=== PATIENT | male | born 1975 | race Caucasian/White ===

== ENCOUNTER 2018-03-19 18:31 | Emergency (ER) | payer MEDICAID ==
--- NOTE | 2018-03-19 19:28 | ED Physician Chart ---
ED Chief Complaint/HPI - Patient Information Date Seen:: 03/19/18 Time Seen:: 19:28 Chief Complaint:: Alcohol intoxication History of Present Illness:: 42 yo male was brought by ambulance from street to ER due to alcohol intoxication. Patient was awake and stated that he had abdominal pain. Patient was hardly able to stand by himself due to intoxication. Allergies:: Allergies Allergy/AdvReac Type Severity Reaction Status Date / Time amoxicillin Allergy Verified 03/19/18 18:53 Penicillins [PCN] Allergy Verified 03/19/18 18:53 Vitals:: Vital Signs - 8 hr 03/19/18 18:37 Temp 97.2 F HR 102 RR 18 BP 107/62 O2 Sat % 94 ED Review of Systems - Review of Systems General/Constitutional: No fever Skin: No bruising Head: Headache Eyes: No pain ENT: No nasal drainage Neck: No neck pain Cardio Vascular: No chest pain Pulmonary: No SOB GI: Nausea, Vomiting Musculoskeletal: No bone or joint pain Neurological: Weakness ED Past Medical History - Past Medical History Past Medical History: No significant medical hx Social History: Non Smoker, Alcohol, No Drug Use Family Medical History - Family Member Mother History Unknown: Yes ED Physical Exam - Physical Examination General/Constitutional: Awake Other Gen/Cons comments:: Confused Head: Atraumatic Eyes: PERRL Skin: No ecchymosis ENMT: Nasal exam nl Neck: No nuchal rigidity Respiratory: No Wheeze/Rhonchi/Rales Cardio Vascular: RRR, No murmur, gallop, rubs, NL S1 S2 GI: Nondistended Extremities: Full ROM, No edema Neuro/Psych: No focal deficits ED Labs/Radiology/EKG Results - Lab Results Results: Laboratory Last Values WBC 4.0 Th/cmm (4.8-10.8) L 03/19/18 20:04 RBC 3.73 Mil/cmm (4.30-5.70) L 03/19/18 20:04 Hgb 12.1 gm/dL (12-16) 03/19/18 20:04 Hct 35.5 % (41.0-60) L 03/19/18 20:04 MCV 95.0 fl (80-99) 03/19/18 20:04 MCH 32.4 pg (26.0-30.0) H 03/19/18 20:04 MCHC Differential 34.1 pg (28.0-36.0) 03/19/18 20:04 RDW 15.2 % (11.5-20.0) 03/19/18 20:04 Plt Count 131 Th/cmm (150-400) L 03/19/18 20:04 MPV 7.3 fl 03/19/18 20:04 Neutrophils % 53.7 % (40.0-80.0) 03/19/18 20:04 Lymphocytes % 29.7 % (20.0-50.0) 03/19/18 20:04 Monocytes % 13.3 % (2.0-10.0) H 03/19/18 20:04 Eosinophils % 2.8 % (0.0-5.0) 03/19/18 20:04 Basophils % 0.5 % (0.0-2.0) 03/19/18 20:04 Sodium 139 mEq/L (136-145) 03/19/18 20:04 Potassium 4.1 mEq/L (3.5-5.1) 03/19/18 20:04 Chloride 104 mEq/L (98-107) 03/19/18 20:04 Carbon Dioxide 23.5 mEq/L (21.0-31.0) 03/19/18 20:04 Anion Gap 15.6 (7.0-16.0) 03/19/18 20:04 BUN 15 mg/dL (7-25) 03/19/18 20:04 Creatinine 0.8 mg/dL (0.7-1.3) 03/19/18 20:04 Est GFR ( Amer) > 60.0 ml/min (>90) 03/19/18 20:04 Est GFR (Non-Af Amer) > 60.0 ml/min 03/19/18 20:04 BUN/Creatinine Ratio 18.8 03/19/18 20:04 Glucose 120 mg/dL (70-105) H 03/19/18 20:04 Whole Bld Lactic Acid 1.82 mmol/L (0.60-1.99) 03/19/18 Unknown Calcium 9.7 mg/dL (8.6-10.3) 03/19/18 20:04 Total Bilirubin 0.2 mg/dL (0.3-1.0) L 03/19/18 20:04 AST 45 U/L (13-39) H 03/19/18 20:04 ALT 27 U/L (7-52) 03/19/18 20:04 Alkaline Phosphatase 61 U/L (34-104) 03/19/18 20:04 Total Protein 8.0 gm/dL (6.0-8.3) 03/19/18 20:04 Albumin 4.6 gm/dL (4.2-5.5) 03/19/18 20:04 Globulin 3.4 gm/dL 03/19/18 20:04 Albumin/Globulin Ratio 1.4 (1.0-1.8) 03/19/18 20:04 Lipase 54 U/L (11-82) 03/19/18 20:04 Ethyl Alcohol 311 mg/dL (0-10) H 03/19/18 20:04 ED Assessment - Assessment General Assessment: Alcohol intoxication Assessment/Comments:: CBC, CMP, UA, urine drug screen NS 1L IV bolus ED Septic Shock - . Is Septic Shock (SBP<90, OR Lactate>4 mmol\L) present?: No - <6hrs of presentation: Vital Signs: Vital Signs - 8 hr 03/19/18 18:37 Temp 97.2 F HR 102 RR 18 BP 107/62 O2 Sat % 94 ED Reassessment (Disposition) - Reassessment Reassessment:: After slept overnight in the ER, patient recovered from alcohol intoxication. Patient was oriented x 3 and ready to be discharged. Reassessment Condition:: Improved - Patient Disposition Discharge/Transfer:: Home ED Discharge Plan - Patient Disposition Admit/Discharge/Transfer: PT DISCHARGED HOME Instructions: Alcohol Intoxication, [id number]
[2018-03-19 20:10] LABS: % BASOPHILS 0.5 % (0.0-2.0); % EOSINOPHILS 2.8 % (0.0-5.0); % LYMPHOCYTES 29.7 % (20.0-50.0); % MONOCYTES 13.3 % (2.0-10.0); % NEUTROPHILS 53.7 % (40.0-80.0); EOSINOPHILE ABSOLUTE 0.1 Th/cmm (0.1-0.4); HEMATOCRIT 35.5 % (41.0-60); HEMOGLOBIN 12.1 gm/dL (12-16); LYMPHOCYTE ABSOLUTE 1.2 Th/cmm (1.5-3.0); MEAN CORPUSCULAR HEMOGLOBIN 32.4 pg (26.0-30.0); MEAN CORPUSCULAR HGB CONC 34.1 pg (28.0-36.0); MEAN PLATELET VOLUME 7.3 fl; MONOCYTE ABSOLUTE 0.5 Th/cmm (0.3-1.0); NEUTROPHILE ABSOLUTE 2.2 Th/cmm (1.8-8.0); PLATELET COUNT 131 Th/cmm (150-400); RED BLOOD COUNT 3.73 Mil/cmm (4.30-5.70); RED CELL DISTRIBUTION WIDTH 15.2 % (11.5-20.0)
[2018-03-19 20:27] LABS: ALB/GLOB RATIO 1.4 (1.0-1.8); ALBUMIN 4.6 gm/dL (4.2-5.5); ALKALINE PHOSPHATASE 61 U/L (34-104); ANION GAP 15.6 (7.0-16.0); BILIRUBIN,TOTAL 0.2 mg/dL (0.3-1.0); BUN - UREA NITROGEN 15 mg/dL (7-25); CALCIUM SERUM 9.7 mg/dL (8.6-10.3); CARBON DIOXIDE 23.5 mEq/L (21.0-31.0); CHLORIDE 104 mEq/L (98-107); CREATININE - SERUM 0.8 mg/dL (0.7-1.3); GFR AFRICAN-AMERICAN > 60.0 ml/min (>90); GFR NON AFRICAN-AMERICAN > 60.0 ml/min; GLUCOSE 120 mg/dL (70-105); POTASSIUM SERUM 4.1 mEq/L (3.5-5.1); SGOT 45 U/L (13-39); SGPT/ALT 27 U/L (7-52); SODIUM SERUM 139 mEq/L (136-145)
[2018-03-19] MEDS ORDERED: Sodium Chloride 0.9% 1,000 ML IV ONE (21:35)
== END 2018-03-20 06:15 | disposition home or self-care (01) ==
LOC: ER 18:31
DX: F10.129 Alcohol abuse with intoxication, unspecified (principal); Z88.0 Allergy status to penicillin; Z88.1 Allergy status to other antibiotic agents
CPT/HCPCS: 36415-UA; 80053-TC; 80320-TC; 83605; 83690-TC; 85025-TC; J7030; Z7502

== ENCOUNTER 2018-03-20 11:17 | Emergency (ER) | payer MEDICAID ==
[2018-03-20] MEDS ORDERED: Sodium Chloride 0.9% 1,000 ML IV ONE (11:36)
--- NOTE | 2018-03-20 12:05 | ED Physician Chart ---
ED Chief Complaint/HPI - Patient Information Date Seen:: 03/20/18 Time Seen:: 11:40 Chief Complaint:: AMS History of Present Illness:: onset x 3 hours of ALOC and AMS; pt reported was found with ETOH intoxication and brought by EMS for evaluation; no report of trauma, H/As, neck pain, C/P, SOB, Abd. Pain, A/N/V/D/C, bleeding, fever, chills, or urinary s/s Allergies:: Allergies Allergy/AdvReac Type Severity Reaction Status Date / Time amoxicillin Allergy Verified 03/19/18 18:53 Penicillins [PCN] Allergy Verified 03/19/18 18:53 Vitals:: Vital Signs - 8 hr 03/20/18 11:41 Temp 97.9 F HR 100 RR 15 BP 119/81 O2 Sat % 95 Historian:: Patient, EMS Review:: Nurse's Note Reviewed, Old Chart Reviewed, EMS run form Reviewed ED Review of Systems - Review of Systems General/Constitutional: No fever, No chills, No weight loss, No weakness, No diaphoresis, No edema, No loss of appetite Skin: No skin lesions, No rash, No bruising Head: No headache, No light-headedness Eyes: No loss of vision, No pain, No diplopia ENT: No earache, No nasal drainage, No sore throat, No tinnitus Neck: No neck pain, No swelling, No thyromegaly, No stiffness, No mass noted Cardio Vascular: No chest pain, No palpitations, No PND, No orthopnea, No edema Pulmonary: No SOB, No cough, No sputum, No wheezing GI: No nausea, No vomiting, No diarrhea, No pain, No melena, No hematochezia, No constipation, No hematemesis G/U: No dysuria, No frequency, No hematuria, No nacturia Musculoskeletal: No bone or joint pain, No back pain, No muscle pain Endocrine: No polyuria, No polydipsia Psychiatric: No prior psych history, No depression, No anxiety, No suicidal ideation, No homicidal ideation, No auditory hallucination, No visual hallucination Hematopoietic: No bruising, No lymphadenopathy Allergic/Immuno: No urticaria, No angioedema Neurological: No syncope, No focal symptoms, No weakness, No paresthesia, No headache, No seizure, No dizziness, No confusion, No vertigo ED Past Medical History - Past Medical History Obtainable: Yes Past Medical History: No significant medical hx Family History: HTN Social History: Smoker, Alcohol, No Drug Use, Single Surgical History: None Psychiatricy History: None Medication: Reviewed Family Medical History - Family Member Mother History Unknown: Yes ED Physical Exam - Physical Examination General/Constitutional: Awake, Well-developed, well-nourished, Alert, No distress, GCS 15, Non-toxic appearing, Ambulatory Head: Atraumatic Eyes: Lids, conjuctiva normal, PERRL, EOMI Skin: Nl inspection, No rash, No skin lesions, No ecchymosis, Well hydrated, No lymphadenopathy ENMT: External ears, nose nl, TM canals nl, Nasal exam nl, Lips, teeth, gums nl , Oropharynx nl, Tonsils nl Neck: Nontender, Full ROM w/o pain, No JVD, No nuchal rigidity, No bruit, No mass, No stridor Other Neck comments:: supple; no meningeal signs; no cervical tenderness; no bruits Respiratory: Nl effort/Exclusion, Clear to Auscultation, No Wheeze/Rhonchi/Rales Cardio Vascular: RRR, No murmur, gallop, rubs, NL S1 S2, Carotid/Femoral/Distal pulses equal bilaterally GI: No tenderness/rebounding/guarding, No organomegaly, No hernia, Normal BS's, Nondistended, No mass/bruits, No McBurney tenderness, Rectum exam nl Other GI comments:: no pulsatile masses; good BS; stool is negative for OB : No CVA tenderness Extremities: No tenderness or effusion, Full ROM, normal strength in all extremities, No edema, Normal digits & nails Neuro/Psych: Alert/oriented, DTR's symmetric, Normal sensory exam, Normal motor strength, Judgement/insight normal, Mood normal, Normal gait, No focal deficits Other Neuro/Psych comments:: no focal signs Misc: Normal back, No paraspinal tenderness ED Labs/Radiology/EKG Results - Lab Results Comments:: ETOH: 401; LA: Elevated; WBC: 3.6; D-Dimer: 615; UDS: + Benzodiazepines - Radiology Results Comments:: CXR: NAD - EKG Interpretations EKG Time:: 11:43 Rate & Rhythm: 101; ST Comments:: non-specific st-t changes ED Septic Shock - . Is Septic Shock (SBP<90, OR Lactate>4 mmol\L) present?: No - <6hrs of presentation: Vital Signs: Vital Signs - 8 hr 03/20/18 11:41 Temp 97.9 F HR 100 RR 15 BP 119/81 O2 Sat % 95 ED Reassessment (Disposition) - Reassessment Reassessment Condition:: Improved - Diagnosis Diagnosis:: Dx: Alcohol Intoxication; Leukopenia; Sepsis; Pulmonary Embolus; DVT; Substance Abuse - Aftercare/Follow up Instructions Aftercare/Follow-Up Instructions:: Counseled pt regarding lab results/diagnosis & need follow up, Counseled pt & family regarding lab results/diagnosis & need follow up - Patient Disposition Discharge/Transfer:: Acute Care w/in this hosp Accepting Physician:: Dr. Yen Time Called:: 1300 Time Responded:: 13:00 Admitted to:: ICU Spoke to:: Dr. Yen Admitting Medical Physician:: Dr. Yen Condition at Disposition:: Stable, Improved ED Discharge Plan - Patient Disposition Admit/Discharge/Transfer: PATIENT ELOPED Condition at Disposition: Guarded
[2018-03-20 12:07] LABS: % BASOPHILS 1.4 % (0.0-2.0); % LYMPHOCYTES 33.3 % (20.0-50.0); % MONOCYTES 13.7 % (2.0-10.0); % NEUTROPHILS 48.6 % (40.0-80.0); BASOPHILE ABSOLUTE 0.1 Th/cumm (0-0.2); EOSINOPHILE ABSOLUTE 0.1 Th/cmm (0.1-0.4); HEMATOCRIT 35.3 % (41.0-60); LYMPHOCYTE ABSOLUTE 1.2 Th/cmm (1.5-3.0); MEAN CELL VOLUME 96.1 fl (80-99); MEAN CORPUSCULAR HEMOGLOBIN 32.7 pg (26.0-30.0); MEAN PLATELET VOLUME 7.7 fl; MONOCYTE ABSOLUTE 0.5 Th/cmm (0.3-1.0); NEUTROPHILE ABSOLUTE 1.7 Th/cmm (1.8-8.0); PLATELET COUNT 134 Th/cmm (150-400); RED BLOOD COUNT 3.68 Mil/cmm (4.30-5.70); RED CELL DISTRIBUTION WIDTH 15.1 % (11.5-20.0)
[2018-03-20 12:15] LABS: WHITE BLOOD COUNT 3.6 Th/cmm (4.8-10.8)
[2018-03-20 12:27] LABS: ALB/GLOB RATIO 1.3 (1.0-1.8); ALBUMIN 4.3 gm/dL (4.2-5.5); ALKALINE PHOSPHATASE 59 U/L (34-104); AMYLASE SERUM 32 U/L (29-103); ANION GAP 14.3 (7.0-16.0); BILIRUBIN,TOTAL 0.3 mg/dL (0.3-1.0); BUN - UREA NITROGEN 12 mg/dL (7-25); CALCIUM SERUM 9.1 mg/dL (8.6-10.3); CARBON DIOXIDE 23.5 mEq/L (21.0-31.0); CHLORIDE 105 mEq/L (98-107); CHOLESTEROL 236 mg/dL (<200); CREATININE - SERUM 0.7 mg/dL (0.7-1.3); CREATININE KINASE 116 U/L (30-223); GFR AFRICAN-AMERICAN > 60.0 ml/min (>90); GFR NON AFRICAN-AMERICAN > 60.0 ml/min; GLUCOSE 105 mg/dL (70-105); HDL -HIGH DENSITY LIPOPROTEIN 84 mg/dL (23-92); LIPASE 55 U/L (11-82); POTASSIUM SERUM 3.8 mEq/L (3.5-5.1); SGOT 57 U/L (13-39); SGPT/ALT 31 U/L (7-52); SODIUM SERUM 139 mEq/L (136-145); TOTAL PROTEIN,SERUM 7.7 gm/dL (6.0-8.3); TRIGLYCERIDES 124 mg/dL (<150)
[2018-03-20 12:30] LABS: INR 0.9 (0.5-1.4); PROTHROMBIN TIME (TEST) 9.3 SECONDS (9.5-11.5)
[2018-03-20 12:38] LABS: AMPHETAMINE URINE NEGATIVE (NEGATIVE); BARBITURATES URINE NEGATIVE (NEGATIVE); BENZODIAZEPINES QUAL URINE POSITIVE (NEGATIVE); CANNABINOID THC NEGATIVE (NEGATIVE); COCAINE METABOLITE QUAL URINE NEGATIVE (NEGATIVE); METHADONE URINE NEGATIVE (NEGATIVE); METHAMPHETAMINES QUAL URINE NEGATIVE (NEGATIVE); OPIATES (MORPHINE) QUAL. URINE NEGATIVE (NEGATIVE); PHENCYCLIDINE (PCP) URINE NEGATIVE (NEGATIVE); TRICYCLICS (TCA) QUAL. URINE NEGATIVE (NEGATIVE)
--- NOTE | 2018-03-20 13:40 | Diagnostic Imaging Report ---
CHEST X-RAY: AP view INDICATION: pain COMPARISON: None FINDINGS: Slight increase left basal density is noted. No focal consolidation identified. Cardiomegaly is noted. The osseous structures are intact. IMPRESSION: Slight increase left basal density. This is probably due to superimposition of soft tissue structures and the heart. Small left effusion is considered less likely. No focal consolidation identified. Cardiomegaly.
[2018-03-20] MEDS ORDERED: Multivitamin Inj 10 ML, Thiamine HCL 100 MG, Magnesium Sulfate 2 GM, Folic Acid 1 MG in... IV ONE (14:00)
== END 2018-03-20 14:40 | disposition left against medical advice (07) ==
LOC: ER 11:17
DX: A41.9 Sepsis, unspecified organism (principal); F10.129 Alcohol abuse with intoxication, unspecified; I26.99 Other pulmonary embolism without acute cor pulmonale; D72.819 Decreased white blood cell count, unspecified; F19.10 Other psychoactive substance abuse, uncomplicated; F17.200 Nicotine dependence, unspecified, uncomplicated; Z86.718 Personal history of other venous thrombosis and embolism; Z88.0 Allergy status to penicillin; Z88.1 Allergy status to other antibiotic agents
CPT/HCPCS: 99285; 93005; 71045; 84484; 83880; 36415; 85379; 83605; 80307; 85025; 85610; 80320; 82150; 82550; 83690; 80053; 80061; 87040; J3411; J3475; J7030; X6598